=== PATIENT | male | born 1970 | race Caucasian/White ===

== ENCOUNTER 2023-10-24 10:33 | Emergency (ER) | payer OTHER, SELFPAY ==
[2023-10-24 10:37] VITALS: BP 157/96; PULSE 82; RESP 18; TEMP 36.3; O2SAT 100
--- NOTE | 2023-10-24 14:17 | ED.GENADULT ---
HPI - General Adult General Chief complaint: Unspecified Stated complaint: thrombosed Hemorrhoid Time Seen by Provider: 10/24/23 13:48 Source: patient Mode of arrival: ambulatory Limitations: no limitations History of Present Illness HPI narrative: Patient presents with concern for a hemorrhoid, possibly thrombosed. This is because he has been having rectal pain for 3 weeks. He had a history of fissures 20 years ago. No hematochezia or melena. No bright red blood per rectum. Sexually active with 1 female partner, his . No concern for STI. Does not insert sexual toys or participate in anal receptive intercourse. No abdominal pain. No other GI issues. Has been trialing Preparation H, warm baths, suppositories, lidocaine, and increasing stool softeners by increasing fiber. His bowel movement this morning was looser. Related Data Allergies Allergy/AdvReac Type Severity Reaction Status Date / Time No Known Allergies Allergy Verified 10/24/23 10:36 [facility] Past Medical History Medical History Anal fissure ~2003 Social History Social History Living arrangements: with family Additional living arrangements comments: Gender identity (if verbalized by the patient): Male Sexual Orientation (if Verbalized by the Patient): Straight or Heterosexual Exam Narrative: GENERAL: Well-appearing, well-nourished, and in no acute distress. HEAD: Normocephalic, atraumatic. EYES: Non injected, non icteric ENT: Nares clear, no rhinorrhea or epistaxis. NECK: Supple. CHEST: Speaking in full sentences. No respiratory distress. HEART: Regular rate and rhythm. . ABDOMEN: Soft, nondistended. Rectal: No external or internal hemorrhoids. Small superficial ulceration at the 7 o'clock position and BEATRIZ with tenderness to palpation between the 3 o'clock and 6 o'clock position. No chavo blood or melena. FOBT/guaiaic negative. Normal sphincter tone. EXTREMITIES: Normal range of motion. No lower extremity edema. SKIN: Warm, dry, no rash. NEURO: No focal deficits. Alert and oriented x3. PSYCH: Normal mood and affect. Course Vital Signs Vital signs: Vital Signs Temperature 97.4 F L 10/24/23 10:37 Pulse Rate 82 10/24/23 10:37 Respiratory Rate 18 10/24/23 10:37 Blood Pressure 157/96 H 10/24/23 10:37 Pulse Oximetry 100 10/24/23 10:37 Temperature 97.4 F L 10/24/23 10:37 Pulse Rate 79 10/24/23 15:25 Respiratory Rate 16 10/24/23 15:25 Blood Pressure 142/75 H 10/24/23 15:25 Pulse Oximetry 99 10/24/23 15:25 Medical Decision Making MDM Narrative Medical decision making narrative: Patient presents with rectal pain for 3 weeks. History of an anal fissure 20-mitch years ago. Concerned for thrombosed hemorrhoids. No abdominal pain or other GI issues; no melena/hematochezia/BRBPR. DOes not participate in anal receptive intercourse. In the emergency department he is afebrile with vital signs notable for hypertension. Strong concern patient has an anal fissure based on exam. THere is a superficial ulceration externally thus possible fistula but it does not clearly communicate with an identifiable sinus tract. Patient prescribed medication including nitroglycerin and analgesic pain medicine. Advised to continue bowel regimen and follow up. Differential Diagnosis Differential Diagnosis: hemorrhoids (internal/external), considered thrombosed; fistula, fissure, abscess Vital Signs Vital Signs: Vital Signs Temperature 97.4 F L 10/24/23 10:37 Pulse Rate 82 10/24/23 10:37 Respiratory Rate 18 10/24/23 10:37 Blood Pressure 157/96 H 10/24/23 10:37 Pulse Oximetry 100 10/24/23 10:37 Temperature 97.4 F L 10/24/23 10:37 Pulse Rate 79 10/24/23 15:25 Respiratory Rate 16 10/24/23 15:25 Blood Pressure 142/75 H 10/24/23 15:25 Pulse Oximetry 99 10/24/23 15:25 Discha
[2023-10-24] MEDS: HYDROcodone/acetaminophen (*CRX) 5-325 MG TABLET 1 TAB PO (15:19)
[2023-10-24 15:25] VITALS: BP 142/75; PULSE 79; RESP 16; O2SAT 99
== END 2023-10-24 15:26 | disposition home or self-care (01) ==
PROVIDERS: Emergency Provider Student in an Organized Health Care Education/Training Program; PCP Internal Medicine
DX: K60.2 Anal fissure, unspecified (principal)
CPT/HCPCS: 99283; A9270

== ENCOUNTER 2023-12-27 00:51 | Day surgery (SDC) | payer OTHER, SELFPAY ==
[2023-12-26 15:01] VITALS: BMI 21.8
--- NOTE | 2023-12-26 15:07 | PC.NURSE ---
Report to the Outpatient Waiting Room, entrance under the green pavilion located off [facility], at time _1245_ on date _12/27/23__. Planned Procedure Time: _1445_.? Time changes happen often and if your time is changed the preop area will call you the afternoon before. - You and your visitor will be asked to self-screen and do not enter if you have any COVID symptoms. Please call surgeon if you need to reschedule. - A mask is optional within the hospital at this time. Patients may have clear liquids (water, carbonated beverages, clear teas, apple juice) until 3 hours prior to surgery with a maximum of 20 ounces. - No food from midnight until time of surgery and no smoking - Infants may have breast milk until 4 hours before surgery, formula 6 hours prior to surgery. - Children will be allowed to drink immediately following surgery.? If applicable, please bring a bottle or sippy cup to assist with drinking. Juice, water, soda, and popsicles are readily available.? For infants on formula, please bring formula the day of surgery.? Pacifiers are allowed. Take only the following medications with a SIP of water on the morning of surgery: NONE DO NOT STOP ANY OF YOUR OTHER PRESCRIPTION MEDICATIONS PRIOR TO SURGERY EXCEPT THE FOLLOWING Medications to discontinue per physician NONE Date to take last dose Please no make-up, nail turkish, hairspray, perfume, deodorant, or body powder the day of surgery.? No jewelry (including any body piercings) or valuables the day of surgery, leave them at home.? Please take a shower or bath the night before, or the morning of, surgery with an antibacterial soap.? Wear comfortable, loose fitting clothing.? Children are encouraged to wear pajamas. - Jewelry must be removed prior to entering the operating room.? Rings and piercings that are not removed may be cut off. - The hospital will not accept responsibility for valuables.? - Please leave all valuables, including medications, at home the day of surgery. If you are going home after surgery, a licensed van cdl driver must drive you home.? - NO public transportation without another adult if you receive anesthesia. - We recommend that an adult stay with you for 24 hours following discharge. - We also recommend that you do not drive, make important decision, drink alcoholic beverages, or take any drugs that were not prescribed by your health care provider for at least 24 hours after your discharge time. For Pediatric surgeries, we recommend two adults accompany the child home. Follow any additional instructions given to you from your surgeon. Telephone instructions given to _PATIENT_and asked if any additional questions and then verbalized understanding. Patient advised to call surgeon office or pre surgery nurse liaison [phone] if any additional questions.
[2023-12-27] VITALS (8 sets, daily range): BP systolic 105–148; BP diastolic 61–82; PULSE 74–92; RESP 12–20; TEMP 36.1–36.2; O2SAT 100
--- NOTE | 2023-12-27 11:23 | ECG_ITS ---
Test Date: 2023-12-27 12:58:46 Measurements Intervals [place] Rate: 72 P: 0 MO: 0 QRS: 70 QRSD: 110 T: 44 QT: 362 QTc: 397 Interpretive Statements SINUS RHYTHM WITH ATRIAL PREMATURE COMPLEX INCOMPLETE RIGHT BUNDLE BRANCH BLOCK NONSPECIFIC ST-T WAVE ABNORMALITY- DIFFUSE LEADS BASELINE ARTIFACT- I, II, III, AVR, AVL, AVF, V1, V4-V6 ABNORMAL ECG No previous ECG available for comparison Electronically Signed On 12-27-2023 13:20:58 QUALITY ANALYST/TECHNICAL WRITER by Munir White D.O.
[2023-12-27] MEDS: KETOROLAC 15 MG/ML VIAL (*BKC) IV PUSH (13:37)
[2023-12-27] MEDS: ACETAMINOPHEN 500 MG TABLET 1000 MG PO (13:37)
[2023-12-27 14:00] LABS: Anion Gap 7 mmol/L (4-12); Blood Urea Nitrogen 18 mg/dL (9-20); Calcium 9.6 mg/dL (8.4-10.2); Carbon Dioxide 29 mmol/L (22-30); Chloride 102 mmol/L (98-107); Estimated CRCL calculation 97 ml/min; Estimated Glomerular Filt Rate > 60; Glucose 108 mg/dL (65-110); Potassium 4.3 mmol/L (3.4-5.0); Sodium 138 mmol/L (137-145)
--- NOTE | 2023-12-27 14:17 | WPDHPUPDATE1 ---
History and Physical Update Update Date/Time: 12/27/23 14:17 History and Physical has been reviewed, including an updated exam of the patient. There are NO changes in the patient's condition. Risks, benefits, and alternatives have been discussed and questions answered. Patient agrees to proceed with procedure.
--- NOTE | 2023-12-27 14:37 | WPDANESEPPF ---
Anes - Initial Pre Proc Eval Procedure: Operation Date: 12/27/23 14:45 Proposed Procedures p Examination Under Anesthesia for Lateral Internal Sphincterotomy - Susi Kumar MD Date/Time: 12/27/23 14:37 Surgeon: Susi Kumar MD Pre Op Diagnosis: anal fissure Patient Data Age: 53 Gender: M Height: 1.85 m Weight: 72.2 kg Last Vital Signs Temp 97.0 F L 12/27/23 13:00 Pulse 78 12/27/23 13:00 Resp 16 12/27/23 13:00 BP 121/61 12/27/23 13:00 Pulse Ox 100 12/27/23 13:00 O2 Del Method Room Air 12/27/23 13:00 Allergies Allergy/AdvReac Type Severity Reaction Status Date / Time No Known Allergies Allergy Verified 12/26/23 14:59 Home Medications Medication Instructions Recorded Confirmed Type oxycodone 5 mg tablet 5 mg PO HS PRN pain #5 tabs 10/24/23 12/26/23 Rx losartan 50 mg-hydrochlorothiazide 1 tablet PO HS 12/26/23 12/26/23 History 12.5 mg tablet rosuvastatin 10 mg tablet 10 mg PO HS 12/26/23 12/26/23 History docusate sodium 100 mg capsule 100 mg PO BID #20 caps 12/27/23 Rx (Colace) oxycodone-acetaminophen 5 mg-325 1 tablet PO Q6H PRN pain #20 tabs 12/27/23 Rx mg tablet Laboratory Tests 12/27/23 13:09 Sodium 138 mmol/L (137-145) Potassium 4.3 mmol/L (3.4-5.0) Chloride 102 mmol/L (98-107) Carbon Dioxide 29 mmol/L (22-30) Anion Gap 7 mmol/L (4-12) BUN 18 mg/dL (9-20) Creatinine 0.80 mg/dL (0.7-1.3) Estim Creat Clear Calc 97 ml/min Estimated GFR > 60 (59 - ) Glucose 108 mg/dL (65-110) Calcium 9.6 mg/dL (8.4-10.2) Patient hx anesthesia problems: none Family hx anesthesia problems: none Results Review: All pre-operative results and documents have been reviewed as part of the pre-operative evaluation. [facility] Past Medical History Medical History Anal fissure ~2003 Hypertension Surgical History Surgical History History of orchiectomy 1997 Social History Social History Smoking status: Never smoker Alcohol intake: current Drinks per week: 3 Living arrangements: with family Additional living arrangements comments: Gender identity (if verbalized by the patient): Male Sexual Orientation (if Verbalized by the Patient): Straight or Heterosexual Anes - Eval Final PreProcedure Day of Procedure 12/27/23 14:37 Patient weight: normal Heart: regular rate and rhythm Lungs: clear to auscultation Airway: Mallampati scale class 1 Neurological: alert and oriented Last oral intake: >/= 8 hours Emergent: no Anesthetic plan: proceed Anesthesia type and monitoring: general ETT and standard monitoring Results Review: All pre-operative results and documents have been reviewed as part of the pre-operative evaluation. HTN, hyperlipidemia, JULIA but mild and not tolerating CPAP. Pt reports that he walks 30 mins several times/week, no cp or sob. Informed Consent: The patient's anesthetic plan and its attendant risks and benefits were discussed with the patient/family/POA. Questions were solicited and answers provided to the satisfaction of the patient/family/POA.
[2023-12-27] MEDS: ceFAZolin 2 GM/D5W 50 ML 2 GM/50 ML BAG IVPB (15:07)
[2023-12-27] MEDS: BUPIVACAINE/EPINEPHRINE 0.5% 50 ML VIAL 30 ML INFILTRATE (15:09)
--- NOTE | 2023-12-27 15:36 | W.PM.PROC2 ---
Procedure Note - Detailed Date of Procedure 12/27/23 Pre-op Diagnosis recurrent anal fissure Post-op Diagnosis Same Procedure Performed exam under anesthesia, lateral internal sphincterotomy Surgeon Susi Kumar MD Anesthesia General and Local Indications 53-year-old male presenting to the office with a recurrent anal fissure. The patient reports that he had a fissure years ago that was successfully treated with nitroglycerin ointment. Patient reports he now has a recurrence that is not healing despite nitroglycerin and nifedipine ointments. Findings Posterior anal fissure Description of Procedure The patient was taken to the operating room and placed in the prone position. After adequate induction of general anesthesia, the patient was prepped draped in the normal sterile fashion. A time-out was then done to verify the patient's identity, as well as the procedure being performed. I began by doing a perianal and bilateral pudendal nerve block. I then serially dilated the anal canal. Once dilated, anoscope was placed into the anal canal. Examination of the rectum and anal canal revealed some external hemorrhoids and the posterior fissure. No other pathology was noted. At this point the sphincteric complex was placed under stretch. I was able to palpate the intersphincteric groove. A 11 blade scalpel was then placed into the groove and the internal sphincter was transected. This transection was approximately from the dentate line to the anal verge. Hemostasis was obtained at this point with pressure. I then placed a piece of Gelfoam covered with lidocaine jelly into the rectal vault. Sterile dressing was then placed. The patient tolerated the procedure well and was extubated postoperatively. He will be transferred to the recovery room stable condition. Estimated Blood Loss 5 Packing Yes Pathology None sent Complications No immediate complications Condition Stable Disposition PACU [facility] Billing Surgery - Charge Forward: Surgery Billing
[2023-12-27] MEDS: LACTATED RINGERS 1,000 ML 30 ML IV CONT ×2 (15:54)
== END 2023-12-27 17:13 | disposition home or self-care (01) ==
PROVIDERS: Anesthesiology; PCP Internal Medicine; Visit Provider Surgery
PROC: (CPT 46080; principal; 2023-12-27 14:45)
DX: K60.2 Anal fissure, unspecified (principal); K64.4 Residual hemorrhoidal skin tags; I10 Essential (primary) hypertension; R94.31 Abnormal electrocardiogram [ECG] [EKG]; I49.1 Atrial premature depolarization; I45.10 Unspecified right bundle-branch block; Z79.891 Long term (current) use of opiate analgesic; Z98.890 Other specified postprocedural states; Z87.19 Personal history of other diseases of the digestive system
CPT/HCPCS: 46080; 36415; 80048; 93005; A9270; J0690; J1100; J1885; J2003; J2250; J2405; J2704; J3010; J7120